=== PATIENT | female | born 1980 | race Caucasian/White ===

== ENCOUNTER 2023-02-26 22:00 | Emergency (ER) | payer MEDICAID ==
[~2023-02-26] VITALS: Ht 170.2 cm; Wt 90.7 kg
[2023-02-26 22:15] VITALS: BP 140/89; PULSE 93; RESP 17; TEMP 97.7; O2SAT 98
[2023-02-27 00:04] LABS: BASOPHILS % (AUTO) 0.4 % (0.0-2.0); EOSINOPHILS # (AUTO) 0.3 K/uL (0-0.4); EOSINOPHILS % (AUTO) 2.6 % (0.0-4.0); HEMATOCRIT 37.4 % (36-48); HEMOGLOBIN 12.4 g/dL (12.0-16.0); LYMPHOCYTES % (AUTO) 28.7 % (20.5-51.1); MEAN CORPUSCULAR HEMOGLOBIN 26 pg (27-31); MEAN CORPUSCULAR HGB CONC 33 g/dL (33-37); MONOCYTES # (AUTO) 0.6 K/uL (0.8-1.0); NEUTROPHILS # (AUTO) 6.5 K/uL (1.8-7.7); NEUTROPHILS % (AUTO) 62.3 % (42.2-75.2); PLATELET COUNT (AUTO) 255 K/uL (140-450); RED BLOOD CELL COUNT(AUTO) 4.86 MIL/uL (4.20-5.40); RED CELL DISTRIBUTION WIDTH 14.6 % (11.6-13.7); WHITE BLOOD COUNT (AUTO) 10.5 K/uL (4.8-10.8)
[2023-02-27 00:24] LABS: ANION GAP 11.6 (8-16); CALCIUM 9.2 mg/dL (8.5-10.1); CARBON DIOXIDE 28.5 mmol/L (21-32); CREATININE 0.8 mg/dL (0.6-1.3); POTASSIUM 4.1 mmol/L (3.5-5.1)
[2023-02-27 00:53] LABS: APPEARANCE,URINE CLEAR (CLEAR); BILIRUBIN,URINE NEGATIVE (NEGATIVE); BLOOD, URINE NEGATIVE (NEGATIVE); COLOR,URINE YELLOW (YELLOW); LEUKOCYTE ESTERASE ,URINE NEGATIVE (NEGATIVE); NITRITE, URINE NEGATIVE (NEGATIVE); PROTEIN,URINE NEGATIVE (NEGATIVE); UGLUCOSE 3+ (NEGATIVE); UROBILINOGEN,URINE 0.2 EU/dL (0.2 - 1)
[2023-02-27 01:09] LABS: BACTERIA,URINE 1+ /HPF (None Seen); RBC,URINE NONE SEEN /HPF (0-5); SQUAMOUS EPITHELIAL CELL,UR 0-3 (FEW) /LPF (0-3 (FEW)); WBC,URINE 0-5 /HPF (0-5)
[2023-02-27] MEDS ORDERED: LORazepam 2 MG/ML VIAL IVP ONE (01:10)
[2023-02-27] MEDS ORDERED: KETOROLAC 30 MG/ML VIAL IVP ONE (01:10)
[2023-02-27] MEDS ORDERED: NACL 0.9% 2,000 ML IV ONE (01:10)
[2023-02-27] MEDS ORDERED: SEMA1PEN3 SQ (01:15)
[2023-02-27 02:40] VITALS: BP 132/82; PULSE 91; RESP 16; TEMP 97.7; O2SAT 99
== END 2023-02-27 02:42 | disposition home or self-care (01) ==
LOC: MED 22:00
DX: E11.65 Type 2 diabetes mellitus with hyperglycemia (principal); Z79.4 Long term (current) use of insulin; Z79.899 Other long term (current) drug therapy
CPT/HCPCS: 36415; 80048; 81001; 82009; 82948; 85025; 96361; 96374; 96375; 99284; J1885; J2060; J7030

== ENCOUNTER 2023-03-01 13:10 | Emergency (ER) | payer MEDICAID ==
[~2023-03-01] VITALS: Ht 167.6 cm; Wt 83.9 kg
[~2023-03-01 13:10] MED LIST: SEMA1PEN3 SQ
[2023-03-01 13:48] VITALS: BP 141/79; PULSE 89; RESP 17; TEMP 97.1; O2SAT 98
[2023-03-01 15:11] LABS: BASOPHILS # (AUTO) 0.1 K/uL (0.00-0.22); BASOPHILS % (AUTO) 0.9 % (0.0-2.0); EOSINOPHILS # (AUTO) 0.3 K/uL (0-0.4); HEMATOCRIT 39.9 % (36-48); HEMOGLOBIN 13.3 g/dL (12.0-16.0); LYMPHOCYTES # (AUTO) 2.2 K/uL (2.5-16.5); LYMPHOCYTES % (AUTO) 23.5 % (20.5-51.1); MEAN CORPUSCULAR HEMOGLOBIN 26 pg (27-31); MEAN CORPUSCULAR HGB CONC 33 g/dL (33-37); MEAN CORPUSCULAR VOLUME 77.6 fL (80-94); MONOCYTES # (AUTO) 0.5 K/uL (0.8-1.0); MONOCYTES % (AUTO) 5.2 % (1.7-9.3); NEUTROPHILS # (AUTO) 6.3 K/uL (1.8-7.7); NEUTROPHILS % (AUTO) 67.4 % (42.2-75.2); PLATELET COUNT (AUTO) 270 K/uL (140-450); RED BLOOD CELL COUNT(AUTO) 5.15 MIL/uL (4.20-5.40); RED CELL DISTRIBUTION WIDTH 14.5 % (11.6-13.7); WHITE BLOOD COUNT (AUTO) 9.3 K/uL (4.8-10.8)
[2023-03-01 15:36] LABS: ALBUMIN 3.6 g/dL (3.4-5.0); ANION GAP 11.6 (8-16); CALCIUM 8.9 mg/dL (8.5-10.1); CARBON DIOXIDE 27.5 mmol/L (21-32); CREATININE 0.8 mg/dL (0.6-1.3); MAGNESIUM 1.7 mg/dL (1.8-2.4); PHOSPHORUS 3.9 mg/dL (2.5-4.9); POTASSIUM 4.1 mmol/L (3.5-5.1); TOTAL BILIRUBIN 0.5 mg/dL (0.0-1.0); TOTAL PROTEIN, SERUM 7.8 g/dL (6.4-8.2)
[2023-03-01] MEDS ORDERED: MAGNESIUM OXIDE 400 MG TAB PO ONE (15:55)
[2023-03-01] MEDS ORDERED: METOCLOPRAMIDE 10 MG/2 ML INJ VIAL IM ONE (15:55)
[2023-03-01] MEDS ORDERED: MECLIZINE 25 MG TAB PO ONE (15:55)
[2023-03-01] MEDS ORDERED: ONDANSETRON 4 MG ODT PO ONE (15:55)
[2023-03-01 16:20] LABS: APPEARANCE,URINE CLEAR (CLEAR); BILIRUBIN,URINE NEGATIVE (NEGATIVE); BLOOD, URINE 2+ (NEGATIVE); COLOR,URINE YELLOW (YELLOW); LEUKOCYTE ESTERASE ,URINE NEGATIVE (NEGATIVE); NITRITE, URINE NEGATIVE (NEGATIVE); PH,URINE 6.5 (5.0-9.0); PROTEIN,URINE NEGATIVE (NEGATIVE); UGLUCOSE NEGATIVE (NEGATIVE); UROBILINOGEN,URINE 0.2 EU/dL (0.2 - 1)
[2023-03-01 16:27] VITALS: BP 135/70; PULSE 82; RESP 17; TEMP 98
[2023-03-01] MEDS ORDERED: MECL-303 PO (16:35)
[2023-03-01] MEDS ORDERED: ONDA-188 PO (16:35)
[2023-03-01 16:41] LABS: WBC,URINE 0-5 /HPF (0-5)
[2023-03-01 16:42] LABS: BACTERIA,URINE FEW /HPF (None Seen); SQUAMOUS EPITHELIAL CELL,UR 4-10 (MOD) /LPF (0-3 (FEW))
[2023-03-01 17:36] VITALS: O2SAT 98
== END 2023-03-01 17:37 | disposition home or self-care (01) ==
LOC: MED 13:10
DX: H81.13 Benign paroxysmal vertigo, bilateral (principal); E11.65 Type 2 diabetes mellitus with hyperglycemia; I10 Essential (primary) hypertension; Z79.899 Other long term (current) drug therapy
CPT/HCPCS: 36415; 80053; 81001; 81025; 83735; 84100; 85025; 96372; 99284; J2765; J8597; Q0162

== ENCOUNTER 2024-03-12 17:58 | Emergency (ER) | payer MEDICAID ==
[~2024-03-12] VITALS: Ht 167.6 cm; Wt 88.5 kg
[~2024-03-12 17:58] MED LIST changes: +MECL-303 PO; +ONDA-188 PO
[2024-03-12 18:05] VITALS: BP 152/99; PULSE 79; RESP 16; TEMP 97; O2SAT 98
[2024-03-12 18:22] VITALS: BP 156/90; PULSE 85; RESP 16; TEMP 97; O2SAT 98
[2024-03-12 19:21] LABS: APPEARANCE,URINE SL CLOUDY (CLEAR); BILIRUBIN,URINE NEGATIVE (NEGATIVE); BLOOD, URINE 1+ (NEGATIVE); COLOR,URINE YELLOW (YELLOW); LEUKOCYTE ESTERASE ,URINE 3+ (NEGATIVE); NITRITE, URINE NEGATIVE (NEGATIVE); PROTEIN,URINE TRACE (NEGATIVE); UGLUCOSE TRACE (NEGATIVE); UROBILINOGEN,URINE 0.2 EU/dL (0.2 - 1)
[2024-03-12 19:25] LABS: BACTERIA,URINE 2+ /HPF (None Seen); MUCUS,URINE None Seen /LPF (None Seen); RBC,URINE 0-5 /HPF (0-5); SQUAMOUS EPITHELIAL CELL,UR 4-10 (MOD) /LPF (0-3 (FEW)); WBC,URINE 16-25 (MOD) /HPF (0-5)
[2024-03-12] MEDS ORDERED: CIPR250T6 PO (19:35)
[2024-03-12] MEDS ORDERED: PYR100 PO (19:35)
== END 2024-03-12 19:46 | disposition home or self-care (01) ==
LOC: MED 17:58
DX: N39.0 Urinary tract infection, site not specified (principal); E11.9 Type 2 diabetes mellitus without complications; I10 Essential (primary) hypertension; Z98.890 Other specified postprocedural states; Z79.899 Other long term (current) drug therapy
CPT/HCPCS: 81001; 81025; 87086; 87186; 99283